=== PATIENT | male | born 1960 | race Caucasian/White ===

== ENCOUNTER 2020-10-27 18:37 | Emergency (ER) | payer OTHER ==
[~2020-10-27] VITALS: Ht 170.2 cm; Wt 84.4 kg
[2020-10-27] MEDS ORDERED: LODOSYN25 MG (19:18)
[2020-10-27] MEDS ORDERED: BIDIL TABLET1 EACH (19:18)
[2020-10-27] MEDS ORDERED: ENALAPRIL MALE2.5 MG (19:18)
[2020-10-27] MEDS ORDERED: PLAVIX75 MG (19:18)
[2020-10-27] MEDS ORDERED: GLIPIZIDE XL5 MG (19:19)
[2020-10-27] MEDS ORDERED: CHILDREN'S ASPI81 MG (19:19)
== END 2020-10-27 23:47 | disposition home or self-care (01) ==
LOC: ER 18:37
DX: R07.89 Other chest pain (principal)

== ENCOUNTER → 2023-06-24 | Outpatient (CLI) | payer OTHER ==
[~2023-06-24] MED LIST: BIDIL TABLET1 EACH; CHILDREN'S ASPI81 MG; COZAAR50 MG PO; EFFIENT10 MG PO; ENALAPRIL MALE2.5 MG; GLIPIZIDE XL5 MG; LODOSYN25 MG; PLAVIX75 MG; TOPROL XL25 M1
== END | disposition home or self-care (01) ==
LOC: SONOGRAMA 15:24
PROVIDERS: ATTEND Specialist
DX: R22.2 Localized swelling, mass and lump, trunk (principal)

== ENCOUNTER 2023-10-07 08:00 | Outpatient (CLI) | payer OTHER ==
[~2023-10-07] VITALS: Ht 171.4 cm; Wt 86.2 kg
[2023-10-07 09:18] LABS: HEMATOCRIT 42.7 % (39.0-48.0); HEMOGLOBIN 14.6 g/dL (13-16.00); MEAN CELL VOLUME 86.3 fL (80.0-100.00); MEAN CORPUSCULAR HEMOGLOBIN 29.6 pg (27.00-32.0); MEAN CORPUSCULAR HGB CONC 34.3 g/dl (32.0-36.0); PLATELET COUNT 226 K/uL (150-450); RED BLOOD COUNT 4.95 M/uL (4.00-6.00); RED CELL DISTRIBUTION WIDTH 13.9 % (11.5-14.5)
[2023-10-07 09:47] LABS: INR 1.02; PARTIAL THROMBOPLASTIN TIME 27.5 SECONDS (22.0-34.0); PROTHROMBIN TIME 10.7 SECONDS (9.0-11.5)
[2023-10-07] MEDS ORDERED: ZETIA10 MG PO (09:58)
[2023-10-07] MEDS ORDERED: METFORMIN HCL500 M3 PO (09:58)
[2023-10-07 09:59] VITALS: BP 126/78
[2023-10-07 10:22] LABS: ALBUMIN 3.7 gm/dL (3.4-5.0); BILIRUBIN TOTAL 0.63 mg/dL (0.3-1.2); CALCIUM 9.2 mg/dL (8.5-10.1); CREATININE SERUM 0.99 mg/dL (0.70-1.30); GFR 76.6; GLOBULINA 3.5 G/DL (2.4-3.5); POTASSIUM 4.51 mEq/L (3.5-5.1); TOTAL PROTEIN 7.2 gm/dL (6.4-8.2)
[2023-10-07 10:41] LABS: URINE APPEARANCE Clear; URINE BILIRRUBIN Negative (NEGATIVE); URINE BLOOD Negative; URINE COLOR Yellow; URINE GLUCOSE Negative (NEGATIVE); URINE KETONE Negative (NEGATIVE); URINE LEUKOCYTE Negative; URINE NITRATE Negative; URINE PROTEIN Negative (NEGATIVE); URINE UROBILINOGEN 0.2 E.U./dl
[2023-10-07 10:42] LABS: URINE BACTERIA 25.1 uL (0.0-1933); URINE EPITHELIAL CELLS 3.9 uL (0.0-38.8); URINE WBC 2.4 uL (0.0-23.2)
[2023-10-07 11:27] LABS: URINE CAST 0.15 uL (0.0-1.40); URINE RBC 0.7 uL (0.0-20.8)
== END 2023-10-07 08:01 | disposition home or self-care (01) ==
LOC: RAD 08:00 → CIR.AMB 10-14 07:00 → EDSTATUS 10-14 07:00 → CIR.AMB 10-14 09:45
PROVIDERS: ATTEND Specialist
DX: R22.2 Localized swelling, mass and lump, trunk (principal); E11.9 Type 2 diabetes mellitus without complications; I10 Essential (primary) hypertension; I25.42 Coronary artery dissection

== ENCOUNTER 2023-11-27 19:46 | Emergency (ER) | payer OTHER ==
[~2023-11-27] VITALS: Ht 170.2 cm; Wt 88.9 kg
[~2023-11-27 19:46] MED LIST changes: +METFORMIN HCL500 M3 PO; +ZETIA10 MG PO
[2023-11-27 19:58] VITALS: BP 132/73; O2SAT 99
[2023-11-27] MEDS ORDERED: FAMOtidine 10 MG/ML (4ML VIAL) IV ONE (20:15)
[2023-11-27] MEDS ORDERED: KETOROLAC TROMETHAMINE 60 MG VIAL IM ONE ×2 (20:15→20:16)
[2023-11-27] MEDS ORDERED: FAMOTIDINE/PF 20 MG/2 ML VIAL ONE (20:16)
[2023-11-27 20:44] LABS: HEMATOCRIT 44.1 % (39.0-48.0); HEMOGLOBIN 15.2 g/dL (13-16.00); MEAN CELL VOLUME 85.8 fL (80.0-100.00); MEAN CORPUSCULAR HEMOGLOBIN 29.6 pg (27.00-32.0); MEAN CORPUSCULAR HGB CONC 34.5 g/dl (32.0-36.0); PLATELET COUNT 214 K/uL (150-450); RED BLOOD COUNT 5.13 M/uL (4.00-6.00)
[2023-11-27 20:55] LABS: PARTIAL THROMBOPLASTIN TIME 26.8 SECONDS (22.0-34.0); PROTHROMBIN TIME 10.9 SECONDS (9.0-11.5)
[2023-11-27 20:59] LABS: ALBUMIN 3.8 gm/dL (3.4-5.0); BILIRUBIN TOTAL 0.52 mg/dL (0.3-1.2); CALCIUM 9.1 mg/dL (8.5-10.1); CREATININE SERUM 1.18 mg/dL (0.70-1.30); GFR 62.35; GLOBULINA 3.9 G/DL (2.4-3.5); POTASSIUM 4.11 mEq/L (3.5-5.1); TOTAL PROTEIN 7.7 gm/dL (6.4-8.2)
[2023-11-27 21:02] LABS: URINE APPEARANCE Clear; URINE BILIRRUBIN Negative (NEGATIVE); URINE BLOOD Negative; URINE COLOR Yellow; URINE GLUCOSE Negative (NEGATIVE); URINE KETONE Negative (NEGATIVE); URINE LEUKOCYTE Negative; URINE NITRATE Negative
[2023-11-27 21:05] LABS: URINE BACTERIA 83.1 uL (0.0-1933); URINE CAST 1.67 uL (0.0-1.40); URINE EPITHELIAL CELLS 6.3 uL (0.0-38.8); URINE RBC 2.2 uL (0.0-20.8); URINE WBC 5.8 uL (0.0-23.2)
[2023-11-27 21:07] LABS: URINE PROTEIN 100 (NEGATIVE)
== END 2023-11-27 22:39 | disposition home or self-care (01) ==
LOC: ER 19:48
PROVIDERS: General Practice
DX: R12 Heartburn (principal); I10 Essential (primary) hypertension; E78.00 Pure hypercholesterolemia, unspecified; Z95.1 Presence of aortocoronary bypass graft; E11.9 Type 2 diabetes mellitus without complications; Z79.84 Long term (current) use of oral hypoglycemic drugs

== ENCOUNTER 2024-02-15 22:51 | Emergency (ER) | payer OTHER ==
[~2024-02-15] VITALS: Ht 170.2 cm; Wt 76.2 kg
[2024-02-15] MEDS ORDERED: ATORVASTATIN CA40 MG PO (23:24)
[2024-02-16] MEDS ORDERED: FAMOTIDINE/PF 20 MG/2 ML VIAL IV PUSH STA (01:26)
[2024-02-16] MEDS ORDERED: MAG HYDROX/ALUMINUM HYD/SIMETH 30 ML BLIST.PACK PO STA (01:27)
[2024-02-16] MEDS ORDERED: PROTONIX40 MG PO (04:40)
[2024-02-16] MEDS ORDERED: PEPCID40 MG PO (04:40)
[2024-02-16] MEDS ORDERED: CARAFATE1 GM/10 ML PO (04:40)
== END 2024-02-16 04:48 ==
LOC: ER 22:53
DX: R53.81 Other malaise (principal); K21.9 Gastro-esophageal reflux disease without esophagitis; I10 Essential (primary) hypertension; E11.9 Type 2 diabetes mellitus without complications; Z79.84 Long term (current) use of oral hypoglycemic drugs

== ENCOUNTER 2024-03-26 22:49 | Emergency (ER) | payer OTHER ==
[~2024-03-26] VITALS: Ht 170.2 cm; Wt 88.5 kg
[~2024-03-26 22:49] MED LIST changes: +ATORVASTATIN CA40 MG PO; +CARAFATE1 GM/10 ML PO; +PEPCID40 MG PO; +PROTONIX40 MG PO
== END 2024-03-27 06:34 | disposition home or self-care (01) ==
LOC: ER 22:51
DX: K30 Functional dyspepsia (principal); E11.9 Type 2 diabetes mellitus without complications; Z79.84 Long term (current) use of oral hypoglycemic drugs; I10 Essential (primary) hypertension